=== PATIENT | female | born 2000 | race African-American/Black ===

== ENCOUNTER 2023-01-11 13:00 | Emergency (ER) | payer OTHER ==
[2023-01-11 13:10] VITALS: BP 128/79; PULSE 63; RESP 16; TEMP 97.8; BMI 29.1
[2023-01-11] MEDS ORDERED: ACETAMINOPHEN 500 MG TABLET (FP) PO ONE (13:44)
[2023-01-11] MEDS ORDERED: ACETAMINOPHEN 325 MG TABLET (FP) ONE (14:00)
== END 2023-01-11 14:12 | disposition home or self-care (01) ==
LOC: JERFT 13:00
DX: R51.9 Headache, unspecified (principal); W22.8XXA Striking against or struck by other objects, initial encounter; Y92.9 Unspecified place or not applicable
CPT/HCPCS: 99283-25